=== PATIENT | male | born 1985 | race Caucasian/White ===

== ENCOUNTER 2019-10-25 17:41 | Emergency (ER) | payer OTHER ==
[~2019-10-25] VITALS: Ht 167.6 cm; Wt 75.8 kg
[2019-10-25 18:04] LABS: ABSOLUTE NEUTROPHILS 5.5 thou/uL (1.4-8.2); BASOPHILS 0.7 % (0.0-2.0); EOSINOPHILS 0.4 % (0.0-3.0); HEMATOCRIT 41.6 % (42.0-52.0); HEMOGLOBIN 14.1 gm/dL (14.0-18.0); LYMPHOCYTES 12.1 % (24.0-44.0); MCH 30.6 pg (26.0-34.0); MCHC 33.8 g/dL (28.0-37.0); MCV 90.6 fL (80.0-100.0); PLATELET COUNT 230 thou/uL (150-400); POLYS 81.8 % (36.0-66.0); RBC 4.59 mil/uL (4.50-6.00); RDW 12.1 % (10.5-14.5); WBC 6.8 thou/uL (4.0-11.0)
[2019-10-25 18:12] LABS: CALCIUM 9.8 mg/dL (8.5-10.1); CREATININE 0.7 mg/dL (0.7-1.3); POTASSIUM 4.1 mmol/L (3.5-5.1)
[2019-10-25 18:18] LABS: ALBUMIN 4.2 g/dL (3.4-5.0); TOTAL BILIRUBIN 0.4 mg/dL (<0.1-1.0); TOTAL PROTEIN 7.9 g/dL (6.4-8.2)
[2019-10-25 19:13] LABS: SALICYLATE < 2.8 mg/dL (2.8-20.0)
[2019-10-25 19:23] LABS: URINE BILIRUBIN NEGATIVE (Negative); URINE BLOOD NEGATIVE (Negative); URINE CLARITY CLEAR; URINE COLOR YELLOW; URINE GLUCOSE-RANDOM* NEGATIVE (Negative); URINE KETONES 2+ (Negative); URINE LEUKOCYTES-REFLEX NEGATIVE (Negative); URINE NITRITE-REFLEX NEGATIVE (Negative); URINE PROTEIN (DIPSTICK) NEGATIVE (Negative); URINE SPECIFIC GRAVITY 1.025 (1.005-1.035); URINE UROBILINOGEN 0.2 E.U./dl (0.2-1.0)
[2019-10-25 19:31] LABS: AMP/METHAMP POSITIVE (Negative); BARBITURATES Negative (Negative); BENZODIAZEPINES Negative (Negative); COCAINE Negative (Negative); METHADONE Negative (Negative); OPIATES Negative (Negative); PCP Negative (Negative)
[2019-10-27 13:55] VITALS: BP 110/64
== END 2019-10-27 13:57 ==
LOC: ER 17:41
PROVIDERS: Emergency Medicine; Nurse Practitioner
DX: R44.3 Hallucinations, unspecified (principal); F15.10 Other stimulant abuse, uncomplicated

== ENCOUNTER 2021-04-17 18:03 | Emergency (ER) | payer OTHER ==
[~2021-04-17] VITALS: Ht 170.2 cm; Wt 68.0 kg
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
[2021-04-17 18:47] LABS: HEMOGLOBIN 14.1 gm/dL (14.0-18.0); MCHC 34.4 g/dL (28.0-37.0)
[2021-04-17 18:48] LABS: ABSOLUTE NEUTROPHILS 8.1 thou/uL (1.4-8.2); BASOPHILS 0.3 % (0.0-2.0); EOSINOPHILS 0.3 % (0.0-3.0); HEMATOCRIT 40.9 % (42.0-52.0); LYMPHOCYTES 16.9 % (24.0-44.0); MCH 31.5 pg (26.0-34.0); MCV 91.5 fL (80.0-100.0); PLATELET COUNT 224 thou/uL (150-400); POLYS 76.5 % (36.0-66.0); RBC 4.47 mil/uL (4.50-6.00); RDW 12.1 % (10.5-14.5); WBC 10.5 thou/uL (4.0-11.0)
[2021-04-17 18:52] LABS: CALCIUM 8.6 mg/dL (8.5-10.1); POTASSIUM 3.4 mmol/L (3.5-5.1)
[2021-04-17 22:17] VITALS: BP 138/91
== END 2021-04-17 22:18 ==
LOC: ER 18:03
PROVIDERS: Emergency Medicine
DX: S02.85XA Fracture of orbit, unspecified, initial encounter for closed fracture (principal); S02.19XA Other fracture of base of skull, initial encounter for closed fracture; Y08.89XA Assault by other specified means, initial encounter; Y93.89 Activity, other specified; Y92.89 Other specified places as the place of occurrence of the external cause; Y99.8 Other external cause status